=== PATIENT | female | born 1990 | race Caucasian/White ===

== ENCOUNTER 2017-07-07 09:43 | Outpatient (CLI) | payer OTHER ==
--- NOTE | 2017-07-07 16:16 | ULT ---
ULTRASOUND OB COMPLETE 07/07/17 HISTORY: Size and dates. COMPARISON: None. FINDINGS: Real time smith scale, color and spectral analysis of the gravid uterus is performed using the transab dominal approach. Single viable intrauterine with average ultrasound age of 20 week, 1 day with estimated date of delivery of 11/23/17. The heart rate is documented at 162 bpm. Amniotic fluid index measures 11.5. Placenta is posterior. BIOMETRY: Biparietal diameter 4.76 cm 20 week, 3 day Head circumference 17.98 cm 20 week, 3 day Abdominal circumference 15.5 cm 20 week, 5 day Femur length 3.3 cm 20 week, 2 day Estimated weight is 13 oz, 40.5 percentile. ANATOMY: The visualized portions of the kidneys, stomach, spine, lateral ventricles are unremarkable. IMPRESSION: Single viable intrauterine with average ultrasound age of 20 week, 1 day. Estimated date of delivery 11/23/17. Estimated weight is 13 oz., 40.5 percentile. POS: [facility]
== END 2017-07-07 09:44 | disposition home or self-care (01) ==
LOC: NAV ULT 09:43
PROVIDERS: ATTEND Family Medicine
DX: Z34.82 Encounter for supervision of other normal pregnancy, second trimester (principal); Z3A.20 20 weeks gestation of pregnancy
CPT/HCPCS: 76805